=== PATIENT | male | born 1990 | race Caucasian/White ===

== ENCOUNTER 2020-05-28 02:10 | Inpatient (IN) | payer SELFPAY ==
[~2020-05-28] VITALS: Ht 165.1 cm; Wt 104.3 kg
[2020-05-28 02:13] VITALS: BP_SYST 140
--- NOTE | 2020-05-28 05:10 | NUR ---
PATIENT AMBULATED WITH STEADY GAIT TO BATHROOM TO GIVE URINE SAMPLE.
--- NOTE | 2020-05-28 05:12 | NUR ---
Patient to ER bed 6 to gown for evaluation. Side rails up. Report given to ANDREA JOSE.
--- NOTE | 2020-05-28 05:15 | NUR ---
Pt present to ER c/o palpations x today. Pt reports waking up abruptly with heart palpations. Pt denies cardiac disorders, drug use, or alcohol. Pt reports episodes of vomiting upon waking up. Denies any allergies.
--- NOTE | 2020-05-28 05:18 | NUR ---
ER at bedside examining patient.
--- NOTE | 2020-05-28 05:20 | NUR ---
# 20 gauge angiocath placed to LAC. Use of asceptic technique. Opsite placed over site. Blood return noted. Blood for lab drawn from site. Flushed with 10 cc of normal saline. No evidence of infiltration noted. Patient tolerated well.
--- NOTE | 2020-05-28 05:23 | NUR ---
ER Dr. LYN at bedside examining patient.
[2020-05-28 05:40] LABS: BASOPHILS # (AUTO) 0.2 K/uL (0.0-0.2); BASOPHILS % (AUTO) 1.5 % (0.0-2.0); EOSINOPHILS # (AUTO) 0.7 K/uL (0.0-0.4); EOSINOPHILS % (AUTO) 6.5 % (0.0-4.0); HEMATOCRIT 47.7 % (36-54); HEMOGLOBIN 16.1 g/dL (14.0-18.0); LYMPHOCYTES # (AUTO) 2.7 K/uL (1.0-5.5); LYMPHOCYTES % (AUTO) 25.6 % (20.5-51.5); MEAN CORPUSCULAR HEMOGLOBIN 30 pg (27-31); MEAN CORPUSCULAR HGB CONC 34 % (32-36); MEAN CORPUSCULAR VOLUME 89 fL (79.0-98.0); MONOCYTES # (AUTO) 0.9 K/uL (0.0-1.0); MONOCYTES % (AUTO) 8.1 % (1.7-9.3); NEUTROPHILS # (AUTO) 6.2 K/uL (1.8-7.7); NEUTROPHILS % (AUTO) 58.3 % (40.0-70.0); PLATELET COUNT (AUTO) 219 K/uL (130-430); RED BLOOD CELL COUNT(AUTO) 5.36 MIL/uL (4.2-6.2); RED CELL DISTRIBUTION WIDTH 13.3 % (9.0-15.0); WHITE BLOOD COUNT (AUTO) 10.6 K/uL (4.8-10.8)
[2020-05-28] MEDS ORDERED: ASPIRIN 325 MG TABLET PO ONE (05:45)
[2020-05-28 05:46] LABS: BARBITURATE, URINE NEGATIVE (NEG <=200); BENZODIAZEPINE, URINE NEGATIVE (NEG <=150); CANNABINOID, URINE NEGATIVE (NEG <=50); COCAINE, URINE NEGATIVE (NEG <=150); METHAMPHETAMINES SCREEN,URINE NEGATIVE (NEG <=500); OPIATE, URINE NEGATIVE (NEG <=100); PHENCYCLIDINE SCREEN,URINE NEGATIVE (NEG <=25); UR TRICYCLIC ANTIDEPRESSANTS NEGATIVE (NEG <=300); URINE AMPHETAMINE NEGATIVE (NEG <=500); URINE METHADONE NEGATIVE (NEG <=200); URINE OXYCODONE SCREEN NEGATIVE (NEG <=100); URINE PROPOXYPHENE SCREEN NEGATIVE (NEG <=300)
[2020-05-28 05:47] LABS: ANION GAP 8 (5-15); CALCIUM 8.7 mg/dL (8.4-11.0); CHLORIDE 105 mmol/L (98-107); CREATININE 0.68 mg/dL (0.55-1.30); GLUCOSE 128 mg/dL (70-99); POTASSIUM 3.7 mmol/L (3.5-5.1); SODIUM SERUM 137 mmol/L (136-145); UREA NITROGEN, BLOOD 15 mg/dL (8-21)
[2020-05-28] MEDS ORDERED: ASPIRIN 325 MG TABLET (ECOTRIN) PO ONE (05:49)
--- NOTE | 2020-05-28 05:50 | NUR ---
Pt able to ambulate to restroom, no complaints at this time.
[2020-05-28 05:52] LABS: ALANINE AMINOTRANSFERASE 143 U/L (12-78); ALBUMIN 3.5 g/dL (3.4-4.8); ASPARTATE AMINOTRANSFERASE 126 U/L (10-37); TOTAL BILIRUBIN 0.3 mg/dL (0.0-1.0)
[2020-05-28 05:54] LABS: ALCOHOL, BLOOD < 3 mg/dL (<10); GFR AFRICAN AMERICAN 177 mL/min (>90)
[2020-05-28 06:00] LABS: FREE T4 (FREE THYROXINE) 1.1 ng/dl (0.8-1.5); THYROID STIMULATING HORMONE 5.26 uIu/mL (0.36-3.74)
--- NOTE | 2020-05-28 06:19 | NUR ---
Pt resting, no complaints at this time, easily arousable.
[2020-05-28] MEDS ORDERED: NACL 0.9% 1,000 ML IV ONE (06:45)
--- NOTE | 2020-05-28 06:52 | NUR ---
Dr Jang at bedside.
--- NOTE | 2020-05-28 07:18 | NUR ---
Report given to mila castaneda for continuation of care
--- NOTE | 2020-05-28 07:20 | NUR ---
Assumed care of patient, report received from ANDREA Horton. Currently resting in bed, v/s stable. Will continue to monitor.
[2020-05-28 07:50] LABS: CHOLESTEROL 163 mg/dL (<200); HDL CHOLESTEROL 35 mg/dL (>45); LDL CHOLESTEROL 97 mg/dL (<100); TRIGLYCERIDES 254 mg/dL (30-150)
--- NOTE | 2020-05-28 08:18 | NUR ---
Med rec and belongings list completed.
--- NOTE | 2020-05-28 08:50 | NUR ---
Patient transported to radiology via wheelchair, accompanied by staff.
[2020-05-28] MEDS ORDERED: METOPROLOL SUCCINATE 50 MG TAB.SR.24H (TOPROL XL) PO SCH (09:00)
--- NOTE | 2020-05-28 10:30 | NUR ---
Pt currently resting in bed, no distress noted.
--- NOTE | 2020-05-28 12:10 | NUR ---
Lunch tray ordered for patient.
--- NOTE | 2020-05-28 14:10 | NUR ---
Pt currently resting in bed, no distress noted.
--- NOTE | 2020-05-28 15:31 | NUR ---
Patient will be admitted to care of Dr. Thomas. Admitted to tele unit. Will go to room 116B. Belongings list completed. Complete and up to date summary report printed. SBAR report to be given at bedside with opportunity for questions. IV site patent and intact.
--- NOTE | 2020-05-28 15:48 | NUR ---
ADMIT NOTE Received pt from ER to the floor with a diagnosis of HYPERTENSION, TACHYCARDIA. Admission process initiated. patient oriented to pain management, safety and call light-teach back done.
[2020-05-28 15:55] VITALS: BP_SYST 155
--- NOTE | 2020-05-28 16:00 | NUR ---
1600. arrived, via gurney, steady gait, walked to bed. " last nite woke up with chest pain, radiated to L shoulder, vomitted x 8times, at home, ". Alert, oriented, and appropriate, lives with family, unmarried. bp on arrival 147/82, with hr 97. On monitor, NSR. the only complaint right now, " hunger and thirst, beverages offered, dinner ordered.
--- NOTE | 2020-05-28 16:12 | NUR ---
prior to food and beverages offered, confirmed with him, that he had no abdominal pain. " No I do have some pain on the right side of my stomach right now". Dinner not given until abdominal pain resolved.
--- NOTE | 2020-05-28 16:14 | NUR ---
CONSULT CARDIOLOGY TACHYCARDIA DR GONZALEZ [phone] S/W [facility] OFFICE
[2020-05-28] MEDS ORDERED: FLU VACC QS2020-21 (6 mos & up) 0.5 ML/SYRINGE I.M. PRN (16:15)
[2020-05-28 16:16] VITALS: BP_SYST 147
--- NOTE | 2020-05-28 19:20 | NUR ---
Opening note Received patient awake, AOx4 and resting in bed, wearing a mask. No distress and non labored breathing on room air. IV to LAC is SL and patent. Side rails up 2x, bed is locked and in lowest position. No bed alarm; refused he has been ambulating to restroom, steady gait, he denies dizziness. He demonstrates use of call light. Updated board and reviewed plan of care.
[2020-05-28 20:00] VITALS: BP_SYST 153
--- NOTE | 2020-05-28 20:50 | NUR ---
Pablo FULLER, B/P 153/ Patient's B/P 153/90, HR 94. He does not have medications scheduled for tonight; paged data center project manager (s/w Porsha; she said Dr. Bueno is labor union business representative). wait for MD to call back.
[2020-05-29] VITALS: BP_SYST 151
--- NOTE | 2020-05-29 00:15 | NUR ---
Dr. Thomas Paged Dr. Thomas and informed patient has a headache and does not have medication. Received medication order for Tylenol; Also reported B/P for 1999 153/90 and for 151/82, HR 97; he did not give medication orders.
[2020-05-29] MEDS ORDERED: ACETAMINOPHEN 325 MG TABLET PO PRN (00:30)
[2020-05-29] MEDS ORDERED: ACETAMINOPHEN 325 MG TABLET ONE (00:30)
--- NOTE | 2020-05-29 00:35 | NUR ---
Tylenol Administered Tylenol 650mg for headache, will continue to monitor.
--- NOTE | 2020-05-29 01:34 | NUR ---
rounds Patient, resting w/ eyes closed. Momentarily awakened and assessed pain level for headache, he reports 0/10 and has no further needs.
--- NOTE | 2020-05-29 03:35 | NUR ---
snacks Patient is awake, he was up for void to restroom. He reports he is hungry and requesting a snack; he was provided with half sandwich, jello and new pitcher of ice water. Presently denies pain. Call light w/in reach.
--- NOTE | 2020-05-29 05:45 | NUR ---
Lab draw auto technician at bedside for blood draw. Presently he denies pain and has no requests. Call light w/in reach.
[2020-05-29 06:53] LABS: BASOPHILS # (AUTO) 0.1 K/uL (0.0-0.2); BASOPHILS % (AUTO) 0.9 % (0.0-2.0); EOSINOPHILS # (AUTO) 0.7 K/uL (0.0-0.4); EOSINOPHILS % (AUTO) 7.6 % (0.0-4.0); HEMATOCRIT 47.6 % (36-54); HEMOGLOBIN 16.3 g/dL (14.0-18.0); LYMPHOCYTES # (AUTO) 2.6 K/uL (1.0-5.5); LYMPHOCYTES % (AUTO) 26.6 % (20.5-51.5); MEAN CORPUSCULAR HEMOGLOBIN 30 pg (27-31); MEAN CORPUSCULAR HGB CONC 34 % (32-36); MEAN CORPUSCULAR VOLUME 89 fL (79.0-98.0); MONOCYTES # (AUTO) 0.7 K/uL (0.0-1.0); MONOCYTES % (AUTO) 6.8 % (1.7-9.3); NEUTROPHILS # (AUTO) 5.7 K/uL (1.8-7.7); NEUTROPHILS % (AUTO) 58.1 % (40.0-70.0); PLATELET COUNT (AUTO) 210 K/uL (130-430); RED BLOOD CELL COUNT(AUTO) 5.37 MIL/uL (4.2-6.2); RED CELL DISTRIBUTION WIDTH 13.5 % (9.0-15.0); WHITE BLOOD COUNT (AUTO) 9.7 K/uL (4.8-10.8)
[2020-05-29 07:40] LABS: ALBUMIN 3.5 g/dL (3.4-4.8); CALCIUM 8.7 mg/dL (8.4-11.0); CREATININE 0.81 mg/dL (0.55-1.30); POTASSIUM 4.1 mmol/L (3.5-5.1); TOTAL BILIRUBIN 0.5 mg/dL (0.0-1.0)
[2020-05-29 08:00] VITALS: BP_SYST 153
[2020-05-29] MEDS ORDERED: METOPROLOL SUCCINATE 50 MG TAB.SR.24H (TOPROL XL) PO SCH (09:00)
[2020-05-29 12:00] VITALS: BP_SYST 158
[2020-05-29 16:00] VITALS: BP_SYST 145
--- NOTE | 2020-05-29 17:36 | NUR ---
alert, oriented, seen by cardio, cleared from cardiac point of view. No issues, uneventful day
[2020-05-29] MEDS ORDERED: TOPXL100 PO (18:02)
[2020-05-29 18:09] VITALS: BP_SYST 145
--- NOTE | 2020-05-29 18:34 | NUR ---
DISCHARGE TO HOME ORDER WRITTEN BY ATTENDING, AT 1 730 THIS EVENING. PATIENT SHOULD FOLLOW UP WITH HIS PRIMARY CARE DR, AND CONTINUE HOME MEDS, WHICH IS TOPROL XL 100MG PO DAILY INSTRUCTED BY THE ATTENDING. NO RX WRITTEN FLU VACCINE , FLUZONE GIVEN PRIOR TO LEAVING THE FLOOR. PICKED UP BY FAMILY MEMBER, LEFT AT 1830 , ALERT, ORIENTED, AND APPROPRIATE
== END 2020-05-29 18:35 | disposition home or self-care (01) | DRG 313 ==
LOC: SED 02:10 → STU 07:27
PROVIDERS: ADMIT Internal Medicine; ATTEND Internal Medicine
DX: R07.9 Chest pain, unspecified (principal); I10 Essential (primary) hypertension; F17.210 Nicotine dependence, cigarettes, uncomplicated; Z20.828 Contact with and (suspected) exposure to other viral communicable diseases; Z91.14 Patient's other noncompliance with medication regimen; R10.9 Unspecified abdominal pain
CPT/HCPCS: 36415; 71045; 76376; 80053; 80061; 80307; 82150-TC; 82550-TC; 83690-TC; 83880; 84439; 84443-TC; 84484; 85025; 85379; 93005; 93306; 96360; 99285; G0378; G0482